=== PATIENT | female | born 1945 | race Caucasian/White ===

== ENCOUNTER → 2016-06-18 11:05 | Outpatient (CLI) | payer MEDICARE, OTHER ==
[2014-12-23 07:26] VITALS: BMI 30.5
[~2016-06-18 11:05] MED LIST: ASPIRIN 81 MG E81 MG; CALCIUM 600+D T1 TA1 PO; HYDROCODONE-APA1 TAB PO; LEXAPRO10 MG PO; MULTI-DAY VITAM1 TAB PO; NAPROSYN500 MG; NEXIUM40 MG PO; PREVACID30 MG PO; TRIAMTERENE HCTZ; VESICARE5 MG PO; ZOCOR20 MG PO
== END | disposition home or self-care (01) ==
LOC: D.CT 11:05
DX: R10.31 Right lower quadrant pain (principal); Z12.11 Encounter for screening for malignant neoplasm of colon; Z68.34 Body mass index [BMI] 34.0-34.9, adult

== ENCOUNTER → 2017-04-24 15:02 | Outpatient (CLI) | payer MEDICARE, OTHER ==
[2014-12-23 07:26] VITALS: BMI 30.5
[~2017-04-24 15:02] MED LIST changes: -ASPIRIN 81 MG E81 MG; +ASPIRIN EC81 M1 PO; +STOOL SOFTENER100 M1 PO; +ZOCOR40 MG PO
== END | disposition home or self-care (01) ==
LOC: D.LAB 15:02
DX: M17.11 Unilateral primary osteoarthritis, right knee (principal); Z11.8 Encounter for screening for other infectious and parasitic diseases

== ENCOUNTER 2017-04-30 05:00 | Outpatient (CLI) | payer MEDICARE ==
[2014-12-23 07:26] VITALS: Ht 157.5 cm; Wt 84.4 kg
[~2017-04-30] VITALS: Ht 157.5 cm; Wt 84.4 kg
[2017-04-30 11:12] LABS: BASOPHILS 0.3 % (0-2); EOSINOPHILS 0.8 % (0-7); HEMATOCRIT 43.3 % (36.0-48.0); HEMOGLOBIN 14.8 g/dL (12-16); LYMPHOCYTES 18.7 % (15-50); MCH 29.8 pg (26.0-34.0); MCHC 34.2 g/dL (31.0-37.0); MCV 87.3 fL (80.0-100.0); MEAN PLATELET VOLUME 9.3 fL (7.4-10.4); MONOCYTES 8.3 % (2-11); NEUTROPHILS 71.9 % (40-80); PLATELET COUNT 204 10x3/uL (130-400); RBC 4.96 10x6/uL (4.00-5.40); RDW 13.6 % (11.5-14.5); WBC 6.1 10x3/uL (4.8-10.8)
[2017-04-30 11:20] LABS: ANION GAP 13.7 mmol/L (8-16); CALCIUM 9.2 mg/dL (8.5-10.1); CARBON DIOXIDE 27.3 mmol/L (21.0-32.0); CREATININE - SERUM 1.2 mg/dL (0.6-1.3)
[2017-04-30 11:22] LABS: APTT 26.9 SECONDS (22.8-39.4); INR 0.93 (0.85-1.17); PROTIME 12.1 SECONDS (11.6-15.0)
[2017-05-22] MEDS ORDERED: ELIQUIS2.5 MG PO (16:57)
[2017-05-22] MEDS ORDERED: OXYCODONE HCL5 MG PO (16:58)
[2017-05-22] MEDS ORDERED: ATARAX 25 MG TA25 MG PO (16:58)
[2017-05-22] MEDS ORDERED: KEFLEX500 MG PO (17:00)
== END 2017-04-30 23:59 | disposition home or self-care (01) ==
LOC: D.OPS 05:00 → EDSTATUS 05-06 10:00 → D.M2 05-06 10:00
PROVIDERS: Orthopaedic Surgery
DX: M19.90 Unspecified osteoarthritis, unspecified site (principal); Z01.810 Encounter for preprocedural cardiovascular examination; Z01.811 Encounter for preprocedural respiratory examination; Z01.812 Encounter for preprocedural laboratory examination; Z53.9 Procedure and treatment not carried out, unspecified reason

== ENCOUNTER 2017-05-21 07:10 | Inpatient (IN) | payer MEDICARE | END 2017-05-25 15:05 | disposition home or self-care (01) | DRG 470 | LOC: D.SDCHOLD 07:10 → D.MS 16:08 | PROC: 0SRD0J9 Replacement of Left Knee Joint with Synthetic Substitute, Cemented, Open Approach (ICD-10-PCS; principal; 2017-05-21) | DX: M17.12 Unilateral primary osteoarthritis, left knee (principal); I10 Essential (primary) hypertension; E78.5 Hyperlipidemia, unspecified; D64.9 Anemia, unspecified ==

== ENCOUNTER 2017-08-26 05:30 | Day surgery (SDC) | payer MEDICARE ==
[2017-08-25 11:10] LABS: HEMATOCRIT 43.5 % (36.0-48.0); HEMOGLOBIN 14.8 g/dL (12-16); MCH 29.5 pg (26.0-34.0); MCV 86.8 fL (80.0-100.0); MEAN PLATELET VOLUME 9.1 fL (7.4-10.4); RBC 5.01 10x6/uL (4.00-5.40); RDW 13.8 % (11.5-14.5); WBC 6.9 10x3/uL (4.8-10.8)
[~2017-08-26] VITALS: Ht 157.5 cm; Wt 78.9 kg
--- NOTE | ~2017-08-26 | OP ---
PATIENT NAME: STEPH ANDINO MEDICAL RECORD: [id number] :43 [facility] DATE: SURGEON: DHARMESH FINE MD DATE OF OPERATION: 08/26/2017 ANESTHESIA: Dr. Peoples. SURGEON: Dharmesh Fine MD FOREMAN/PILE DRIVING AND ERECTION: None. PREOPERATIVE DIAGNOSIS: Left total knee arthroplasty joint contracture. POSTOPERATIVE DIAGNOSIS: Left total knee arthroplasty joint contracture. PROCEDURE PERFORMED: Left total knee arthroplasty, manipulation under anesthesia. ANTIBIOTICS: None. BLOOD LOSS: None. FINDINGS: There was a 10-degree extension lag and the knee bent to approximately 90 degrees preoperatively. Postoperatively, full extension was achieved and 130 degrees, calf to thigh, knee flexion was obtained with the hip fully flexed. COMPLICATIONS: None. PATHOLOGY: None. IMPLANTS: None. DRAINS: None. TOURNIQUET: None. POSTOP: The patient was taken in stable condition to the recovery room. Needle, sponge and instrument counts were correct. INDICATIONS FOR PROCEDURE: Failure to achieve and maintain full extension and limitation of flexion of the left total knee to 90 degrees postoperatively, despite appropriate postoperative rehabilitation and home exercise. PROCEDURE IN DETAIL: The patient was taken to the operating room after informed consent was obtained and signed and placed in the chart. A block was placed for the left lower extremity prior to going back to the operating room. Once the block was placed, the patient was taken back to the operating room and placed supine on the table. Sedation was then provided by the anesthesia department and when full sedation was achieved, the left knee manipulation was performed first with a straight leg raise and manipulation of the knee into full extension and slight hyperextension. This position was held for several minutes, at which time full extension was achieved in the OR. At this time, the knee and hip were then flexed and slow pressure was applied. Adhesions were broken up in flexion as well as previously in extension and slowly 130 degrees calf to thigh knee OPERATIVE REPORT [id number] STEPH ANDINO flexion was achieved in the operating room and held for several minutes. This concluded the procedure and the patient was awakened in stable condition and brought to the recovery room. She will require postoperative therapy and home exercise. I counseled her on not placing pillows under the knee, which would encourage knee flexion, contracture to reform. She will place pillows under the heel and daily will perform thigh thrusts with her hand above her knee in order to maintain a full knee extension. She will also have home exercises for knee flexion. She will be seen back in the ortho clinic in followup. TRANSINT:[id number] Voice Confirmation ID: [id number] DOCUMENT ID: [id number] DHARMESH FINE MD at 1153 CC: [id number] DICTATION DATE: 08/26/17805 EMISSIONS REPAIR TECHNICIAN: 08/26/17 1333 [facility] 08/26/[address] [id number]
[~2017-08-26 05:30] MED LIST changes: +ATARAX 25 MG TA25 MG PO; +ELIQUIS2.5 MG PO; +KEFLEX500 MG PO; +NEXIUM20 MG PO; -NEXIUM40 MG PO; +OXYCODONE HCL5 MG PO; +ULTRAM50 MG PO
[2017-08-26 06:29] VITALS: BP 164/87; Ht 157.5 cm; Wt 78.9 kg
== END 2017-08-26 13:00 | disposition home or self-care (01) ==
LOC: D.OPS 05:30 → D.PAN 08:30 → D.OPS 08:30
PROVIDERS: Anesthesiology
DX: T84.89XA Other specified complication of internal orthopedic prosthetic devices, implants and grafts, initial encounter (principal); M24.562 Contracture, left knee; Z01.812 Encounter for preprocedural laboratory examination

== ENCOUNTER → 2017-10-17 09:38 | Outpatient (CLI) | payer MEDICARE ==
[2017-08-26 06:29] VITALS: BMI 31.9
== END | disposition home or self-care (01) ==
LOC: D.CT 09:38
DX: R10.31 Right lower quadrant pain (principal)

== ENCOUNTER → 2019-01-01 09:25 | Outpatient (CLI) | payer MEDICARE, BC ==
[2017-08-26 06:29] VITALS: BMI 31.9
--- NOTE | 2019-01-04 14:34 | EC ---
PATIENT:STEPH ANDINO DATE OF SERVICE: 01/01/19 SEX: F MEDICAL RECORD: [id number] DATE OF : 43 [facility] AGE OF PATIENT: 73 ADMISSION DATE: 01/01/19 REFERRING PHYSICIAN: INTERPRETING PHYSICIAN: LYNSEY VANG MD ECHOCARDIOGRAM REPORT ECHO CHARGES 4 ECHO COMPLETE Date: 01/01/19 CLINICAL DIAGNOSIS: HTN HX MR/TR/AI ECHOCARDIOGRAPHIC MEASUREMENTS (adult normal given) AC root (d.<3.7cm) 3.7 cm LV Septum d (<1.2 cm> 1.0 cm Valve Excursion 1.4 cm LV Septum (systole) 1.2 cm Left Atria (s.<4.0cm> 3.4 cm LVPW d(<1.2cm) 1.3 cm RV (d.<2.3cm) 3.0 cm LVPW (sytole) 1.6 cm LV diastole(<5.6CM) 4.3 cm MV E-F(>70mm/sec) cm LV systole 2.6 cm LVOT Diameter 1.9 cm MV exc.(>10mm) 1.2 cm Est.ejection fraction (50-75%) % DOPPLER: LVIT cm/sec A 85.0 cm/sec E 80.0 cm/sec LA cm/sec RVSP 41 mmHg LVOT 110 cm/sec AOP1/2T 527 m/s Asc. Ao 132 cm/sec RVOT 65 cm/sec RA cm/sec PA 94 cm/sec AV Gradient Peak 6.95 mmHg AV Mean 3.89 mmHg AV Area 2.3 cm MV Gradient Peak 6.49 mmHg MV Mean 2.06 mmHg MV Area cm COMMENTS: Tool Engineer: 2 ISAAC RODRIGUEZ [employer] Bi Developer: 1 Dr. Vang TAPE# PACS Pericardial Effusion N DATE OF SERVICE: FINDINGS: 1. Left ventricular chamber size is within normal limits. Left ventricular systolic function is normal at 60% to 65%. 2. Left atrium, right atrium, and right ventricular chamber sizes are within normal limits. 3. Valvular structures have normal structure and motion. 4. Doppler interrogation reveals mild aortic insufficiency, mild mitral regurgitation, moderate tricuspid regurgitation, no other valvular insufficiency ECHOCARDIOGRAM REPORT [id number] STEPH ANDINO or stenosis. Pulmonary systolic pressure is estimated 41 mmHg. 5. No evidence of pericardial effusion or left ventricular thrombus. TRANSINT:[id number] Voice Confirmation ID: [id number] DOCUMENT ID: [id number] LYNSEY VANG MD at 1434 CC: [id number] DICTATION DATE: 01/04/19 1026 PIT HOIST OPERATOR: 01/04/19 1208 DEP CLI 01/01/19 [place] [id number] [place] [id number]
--- NOTE | 2019-01-04 14:34 | ST ---
PATIENT:STEPH ANDINO MEDICAL RECORD: [id number] SEX: F LOCATION:[facility] [place] ORDER #: ADMISSION DATE: 01/01/19 AGE OF PATIENT: 73 REFERRING PHYSICIAN: INTERPRETING PHYSICIAN: LYNSEY GENAO MD DATE OF SERVICE: 01/01/2019 PROCEDURE: Nuclear stress test. INDICATIONS: Angina, shortness of breath. She was exercised on standard Lexiscan protocol with 33 mCi of sestamibi injected at peak stress, 11 mCi used previously for rest images. FINDINGS: Gated SPECT reveals preserved ejection fraction at 75% with good wall motion and thickening and brightening throughout all segments. SPECT imaging: Cardiolite was used as myocardial perfusion agent. There is homogeneous uptake throughout all segments at rest and stress with no evidence of inducible ischemia or previous infarction. OVERALL IMPRESSION: 1. This is a normal nuclear stress test with no evidence of inducible ischemia or previous infarction. 2. Gated SPECT reveals a preserved ejection fraction at 75%. In this patient with ongoing symptomatology, the current scan does not suggest the presence of hemodynamically significant coronary artery disease. Evaluate noncardiac etiology of chest pain. TRANSINT:[id number] Voice Confirmation ID: [id number] DOCUMENT ID: [id number] LYNSEY GENAO MD at 1434 CC: BHAVIK CARBONE [id number] DICTATION DATE: 01/03/19 1232 DINKEY BRAKEMAN: 01/04/19 0011 DEP CLI 01/01/19 [place] [id number] [place] [address]
== END | disposition home or self-care (01) ==
LOC: D.HCCECHO 09:25
PROVIDERS: ATTEND Internal Medicine Interventional Cardiology
DX: I10 Essential (primary) hypertension (principal)